=== PATIENT | female | born 1965 | race Caucasian/White ===

== ENCOUNTER 2023-06-17 13:19 | Emergency (ER) | payer BC, SELFPAY ==
--- NOTE | ~2023-06-17 | XR_ITS ---
XR chest 2V 06/17/2023 14:11 Indication: Rib pain after fall Procedure: 2 view chest Comparison: 11/17/2011 Findings: Heart size normal. Right basilar atelectasis. No focal pneumonia, edema, significant effusi on or pneumothorax. No acute osseous abnormality. Impression: 1: Right basilar atelectasis. Reviewed, dictated and finalized at location A. Impression: 1: Right basilar atelectasis.
[2023-06-17 13:22] VITALS: BP 131/61; PULSE 80; RESP 18; TEMP 36.6; O2SAT 100
--- NOTE | 2023-06-17 13:35 | ED.GENADULT ---
HPI - General Adult General Chief complaint: Fall Stated complaint: fall with pain to left ribs, shoulder and neck Time Seen by Provider: 06/17/23 13:29 History of Present Illness HPI narrative: 58-year-old female history of asthma presented after fall. Per patient, she was gardening yesterday in the evening lost her footing and had a fall to the ground. She denied head injury, LOC, injury to other extremities, chest pain, shortness of breath, abdominal pain. She had intermittent left shoulder spasms, did not improve so presented to the ED for further evaluation. Past Medical History: asthma Medications: albuterol Allergies: penicillin Related Data Allergies Allergy/AdvReac Type Severity Reaction Status Date / Time Penicillins Allergy Hives Verified 06/17/23 13:33 Review of Systems Review of Systems: See HPI Exam Narrative: General: Alert, calm and cooperative, no acute distress, phonating, sitting comfortably during visit HEENT: Pupils equal round and reactive to light, extra ocular movements intact, no conjunctival injection, head atraumatic, neck supple without meningismus Cardiovascular: Regular rate and rhythm, no visible jugular venous distension Respiratory: Lungs clear to ascultation bilaterally, no wheezing/rales/rhonchi Abdominal: soft, non-tender, non-distended, no guarding, no rebound/peritoneal signs, no costovertebral tenderness to palpation Back: no midline tenderness to palpation, no step offs Extremities: No edema, palpable peripheral pulses, warm, well perfused, no tenderness to bilateral calves Neurological: Alert, moving all extremities symmetrically, ambulating without deficit Course Reevaluation(s) Reevaluation #1: Patient reassessed; reporting resolution of all symptoms. Physical exam benign, sitting comfortably, vitals stable. Date: 06/17/23 Time: 14:40 Vital Signs Vital signs: Vital Signs Temperature 97.8 F 06/17/23 13:22 Pulse Rate 80 06/17/23 13:22 Respiratory Rate 18 06/17/23 13:22 Blood Pressure 131/61 06/17/23 13:22 Pulse Oximetry 100 06/17/23 13:22 Oxygen Delivery Room Air 06/17/23 13:22 Temperature 97.8 F 06/17/23 13:22 Pulse Rate 80 06/17/23 13:22 Respiratory Rate 18 06/17/23 13:22 Blood Pressure 131/61 06/17/23 13:22 Pulse Oximetry 100 06/17/23 13:22 Oxygen Delivery Room Air 06/17/23 13:22 Medical Decision Making MDM Narrative Medical decision making narrative: 58 year old female history of asthma presented with mechanical fall one day ago with left back spasms. Physical exam benign, atraumatic, no midline tenderness, no step offs, sitting in bed comfortably, vitals stable. History and exam suggestive of musculoskeletal strain. The patient tolerated oral intake, is alert and oriented, speaking with clear speech, ambulated with steady gait, and has remained hemodynamically stable throughout the ED visit. Findings on imaging communicated to patient and counseled to follow up with primary care provider. Has close follow up with primary care provider. Areas of diagnostic uncertainty discussed and strict return precautions shared with patient; encouraged to return to the emergency department if symptoms returned or worsened. The patient is safe to be discharged with follow up, provided she abide by the verbalized and written instructions, to which the patient has expressed understanding. Vital Signs Vital Signs: Vital Signs Temperature 97.8 F 06/17/23 13:22 Pulse Rate 80 06/17/23 13:22 Respiratory Rate 18 06/17/23 13:22 Blood Pressure 131/61 06/17/23 13:22 Pulse Oximetry 100 06/17/23 13:22 Oxygen Delivery Room Air 06/17/23 13:22 Temperature 97.8 F 06/17/23 13:22 Pulse Rate 80 06/17/23 13:22 Respiratory Rate 18 06/17/23 13:22 Blood Pressure 131/61 06/17/23 13:22 Pulse Oximetry 100 06/17/23 13:22 Oxygen Delivery Room Air 06/17/23 13:22 Imaging Data My impression: Per my indep
[2023-06-17] MEDS: KETOROLAC 30 MG/ML VIAL (*BKC) IM (13:41)
[2023-06-17] MEDS: LIDOCAINE 5% PATCH 1 PATCH TRANSDERM (13:46)
== END 2023-06-17 14:46 | disposition home or self-care (01) ==
PROVIDERS: Emergency Provider Emergency Medicine
DX: M62.830 Muscle spasm of back (principal); J45.909 Unspecified asthma, uncomplicated; W01.0XXA Fall on same level from slipping, tripping and stumbling without subsequent striking against object, initial encounter; Y93.H2 Activity, gardening and landscaping
CPT/HCPCS: 71046; 96372; 99283; A9270; J1885